=== PATIENT | male | born 2000 | race Caucasian/White ===

== ENCOUNTER 2020-07-16 15:03 | Emergency (ER) | payer BC ==
[2020-07-16] MEDS ORDERED: IBUPROFEN600 MG PO (15:56)
== END 2020-07-16 16:00 | disposition home or self-care (01) ==
LOC: ER1 15:03
DX: S93.491A Sprain of other ligament of right ankle, initial encounter (principal); W19.XXXA Unspecified fall, initial encounter; Y92.009 Unspecified place in unspecified non-institutional (private) residence as the place of occurrence of the external cause; Z87.828 Personal history of other (healed) physical injury and trauma
CPT/HCPCS: 29515; 73610; 99283